=== PATIENT | female | born 1955 | race Two or more races ===

== ENCOUNTER 2019-01-30 23:27 | Emergency (ER) | payer MEDICARE ==
[~2019-01-30] VITALS: Ht 157.5 cm; Wt 90.7 kg
[2019-01-30 23:57] VITALS: BP 152/53
== END 2019-01-31 00:07 | disposition left against medical advice (07) ==
LOC: ER 23:27
DX: E16.2 Hypoglycemia, unspecified (principal); Z53.21 Procedure and treatment not carried out due to patient leaving prior to being seen by health care provider
CPT/HCPCS: 82962; 93005